=== PATIENT | female | born 1965 | race Caucasian/White ===

== ENCOUNTER → 2021-08-03 | Outpatient (CLI) | payer OTHER ==
[2021-08-03 09:12] LABS: African American GFR (CKD) >90 (>60 ml/min/1.73 sqM); Blood Urea Nitrogen 12 mg/dL (7-17); Non-African American GFR(CKD) >90 (>60 ml/min/1.73 sqM)
--- NOTE | 2021-08-03 11:45 | CT ---
CT urogram with and without contrast HISTORY: R 31.1, microhematuria Helical acquisition obtained pre- and postadministration of 100 cc of Isovue 370 through the abdomen, automated exposure control performed for dose reduction. No comparisons. Lung bases are clear, there is no pleural or pericardial effusion. ABDOMEN: Precontrast images show no hydronephrosis on the left, mild pelvic caliectasis present on th e right, no evident renal collecting system stone or ureteral calculus. There is a large cystic focus associated with the lower pole the right kidney in exophytic location measuring approximately 8.4 cm in transverse dimension. Crescentic calcification is present towards the upper aspect of the cyst sh ows a band appearance overall however there is a focal thickened portion on axial image 51 of the pre contrast images measuring approximately 5 mm. Suspect there may be an associated septal, the calcific ation is slightly central to the margin of the cyst. Minimal septal enhancement following contrast ad ministration is suspected but is not measurable. No additional renal mass. Cortical cyst is present a t the upper pole the left kidney measuring 13 mm. Ureters show normal course and caliber. Extrarenal pelves are present bilaterally. Within the upper pole renal collecting system on the left, coronal im age 88 and 89 series 10 there is a questionable filling defect, axial image #19 and 20 of series 9, f indings could possibly be related to streaming of contrast however difficult to exclude a filling def ect, similar type appearance is present to a lesser extent in the left kidney. Urinary bladder shows no definite mass. Small hypodense focus within the right lobe liver posteriorly and also along the inferior lip anterio rly likely represent cortical cysts. The pancreas, adrenal glands, spleen, pancreas are within normal limits. No retroperitoneal adenopathy. Atheromatous changes present within the aorta. Somewhat sligh t ectasia infrarenal abdominal aorta measures 3.1 cm. There is no evident bowel obstruction. There is a spinal curvature. IMPRESSION: Large cyst at the lower pole the right kidney as described. Difficult to exclude filling defect within the upper pole calyx of the left kidney as described.
== END | disposition home or self-care (01) ==
LOC: RADCTMAIN 08:15
PROVIDERS: ATTEND Urology
DX: R31.1 Benign essential microscopic hematuria (principal)
CPT/HCPCS: 82565; 84520; 74178; 36415; 74400; Q9967

== ENCOUNTER → 2021-08-25 | Outpatient (CLI) | payer OTHER ==
[2021-08-25 10:32] LABS: African American GFR (CKD) >90 (>60 ml/min/1.73 sqM); Anion Gap 7 mmol/L; Blood Urea Nitrogen 10 mg/dL (7-17); Calcium 9.7 mg/dL (8.4-10.2); Carbon Dioxide 29 mmol/L (22-30); Chloride 104 mmol/L (98-107); Glucose 112 mg/dL (74-99); Non-African American GFR(CKD) >90 (>60 ml/min/1.73 sqM); Potassium 4.2 mmol/L (3.5-5.1); Sodium 140 mmol/L (137-145)
[2021-08-25 10:35] LABS: Appearance,Urine Clear (Clear); Bacteria,Urine Rare /hpf; Bilirubin,Urine Negative (Negative); Blood,Urine Small (Negative); Color,Urine Yellow; Glucose,Urine (UA) Negative (Negative); Ketones,Urine Negative (Negative); Leukocyte Esterase,Urine Negative (Negative); Mucus,Urine Occasional /hpf; Nitrite,Urine Negative (Negative); Protein,Urine Negative (Negative); RBC,Urine 3 /hpf (0-5); Specific Gravity,Urine 1.011 (1.001-1.035); Squamous Epithelial Cell,Urine 5 /hpf (0-4); Urobilinogen,Urine <2.0 mg/dL (<2.0); WBC,Urine 2 /hpf (0-5)
[2021-08-25 10:56] LABS: Basophils # (A) 0.1 k/uL (0-0.2); Basophils % (A) 1 %; Eosinophils # (A) 0.3 k/uL (0-0.7); Eosinophils % (A) 3 %; HCT 44.6 % (34.0-46.0); HGB 14.3 gm/dL (11.4-16.0); Lymphocytes % (A) 29 %; MCH 30.7 pg (25.0-35.0); MCV 95.9 fL (80.0-100.0); Mean Platelet Volume 7.2; Monocytes # (A) 0.5 k/uL (0-1.0); Monocytes % (A) 5 %; Neutrophils # (A) 6.1 k/uL (1.3-7.7); Neutrophils % (A) 59 %; Platelet Count 335 k/uL (150-450); RBC 4.65 m/uL (3.80-5.40); RDW 12.2 % (11.5-15.5); WBC 10.3 k/uL (3.8-10.6)
== END | disposition home or self-care (01) ==
LOC: LABPAT 09:26
PROVIDERS: ATTEND Urology
DX: Z01.812 Encounter for preprocedural laboratory examination (principal); R31.1 Benign essential microscopic hematuria
CPT/HCPCS: 36415; 80048; 81001; 85025; 87086

== ENCOUNTER 2021-09-01 12:02 | Day surgery (SDC) | payer OTHER ==
[2021-08-25 11:37] VITALS: BMI 22.5
--- NOTE | 2021-09-01 11:12 | P.HPIHPCON ---
History of Present Illness H&P Date: 09/01/21 Chief Complaint: Microscopic hematuria This is a 56-year-old female with history of microscopic hematuria. She underwent a CT urogram showed a possible filling defect in the left upper pole. Discussed with her given this finding I recommend proceeding ureteroscopy to better evaluate the area. Discussed with her the risk of surgery which includes but not limited to bleeding, infection, injury to the ureter. Discussed also with her risk from anesthesia. She understood all the risk and agreed to proceed with a diagnostic left retrograde pyelogram, ureteroscopy, possible stent placement Consent for Procedure: I have explained the operation/procedure to the patient, including the risks, benefits, side effects, alternative therapies (including not receiving the proposed treatment or service), the likelihood of the patient achieving his/her goals, and potential recuperation problems for the procedure/sedation/analgesia, as well as any blood products, if indicated. I also explained to the patient the risks, benefits and side effects of the alternatives, as well as the risks related to not receiving the proposed procedure, care, treatment, or services. Past Medical History Additional Past Medical History / Comment(s): KIDNEY STONES History of Any Multi-Drug Resistant Organisms: None Reported Past Surgical History: Section Past Anesthesia/Blood Transfusion Reactions: No Reported Reaction Smoking Status: Current every day smoker - Past Family History Mother Family Medical History: No Reported History Medications and Allergies Allergies Allergy/AdvReac Type Severity Reaction Status Date / Time Unable to Assess Allergy Verified 08/25/21 11:23 Surgical - Exam - General no distress, no pain - Eyes normal ocular movement - ENT normal nares, normal mucosa - Respiratory normal expansion, normal respiratory effort - Abdomen Abdomen: soft, non tender - Psychiatric oriented to time, oriented to person, oriented to place Assessment and Plan Assessment: OR for cystoscopy, left retrograde pyelogram, ureteroscopy and possible stent placement
[~2021-09-01 12:02] MED LIST: DEXAMETHASONE SOD PHOSPHATE 4 MG/ML 1 ML VIAL IV ONE; HYDROmorphone 0.5 MG/0.5 ML SYRINGE IVP PRN; LACTATED RINGERS 1,000 ML IV SCH; ONDANSETRON 4 MG/2 ML VIAL IVP ONE
[2021-09-01] MEDS ORDERED: fentaNYL (PF) 50 MCG/ML 2 ML AMP ONE (13:31)
[2021-09-01] MEDS ORDERED: MIDAZOLAM 2 MG/2 ML VIAL ONE (13:31)
[2021-09-01] MEDS ORDERED: IOPAMIDOL-370 50ML BTL MISCELLANE ONE (13:31)
[2021-09-01] MEDS ORDERED: LIDOCAINE 1% INJ 10MG/ML (20 ML MDV) ONE (13:31)
[2021-09-01] MEDS ORDERED: PROPOFOL 10 MG/ML 20 ML VIAL IV ONE (13:31)
--- NOTE | 2021-09-01 14:09 | P.OP ---
Date of Procedure: 09/01/21 Preoperative Diagnosis: Microscopic hematuria, possible left ureteral tumor Postoperative Diagnosis: Same Procedure(s) Performed: Cystoscopy, left retrograde pyelogram, ureteroscopy Implants: None Anesthesia: GREGGA Surgeon: Emanuel Navarro Estimated Blood Loss (ml): 1 Pathology: none sent Condition: stable Disposition: PACU Indications for Procedure: This is a 56-year-old female with history of microscopic hematuria. She underwent a CT urogram showed a possible filling defect in the left upper pole. Discussed with her given this finding I recommend proceeding ureteroscopy to better evaluate the area. Discussed with her the risk of surgery which includes but not limited to bleeding, infection, injury to the ureter. Discussed also with her risk from anesthesia. She understood all the risk and agreed to proceed with a diagnostic left retrograde pyelogram, ureteroscopy, possible stent placement Operative Findings: Normal left ureteroscopy, cystoscopy Description of Procedure: Patient was brought to the operating room, general anesthesia was induced. She was prepped and draped in sterile fashion and placed in dorsal lithotomy position. Cystoscopy fitted with a 22-Azeri sheath was inserted per urethra, cystoscopy was performed showed no bladder tumors or abnormality within the bladder. Attention was then carried to the left ureteral orifice which was intubated with an open-ended catheter, retrograde pyelogram was performed showed no filling defect along the course of the ureter, along the upper pole there was a possible prominent papilla versus a a tumor on retrograde. At this time a sensor wire was advanced through the catheter the catheter was removed with the wire in place. Next flexible ureteroscope was passed over the wire and into the kidney. Renoscopy was performed which showed no abnormality within the kidney. The area of the filling defect was thoroughly evaluated using the ureteroscope which showed no tumors, and appeared to be more of a prominent papilla rather than the tumor. At this time pullback ureteroscopy was performed showed no injury to the ureter or any ureteral tumor. The bladder was emptied and the end of the case. Patient tolerated the procedure well was taken to recovery in stable condition
[2021-09-01 14:19] VITALS: TEMP 97
[2021-09-01] MEDS ORDERED: SODIUM CHLORIDE 0.9% 1,000 ML IV ONE ×2 (14:22)
[2021-09-01 14:41] VITALS: RESP 16
--- NOTE | 2021-09-01 14:51 | FL ---
Fluoroscopy HISTORY: Microhematuria 25 seconds fluoroscopy time supplied to the referring clinician. 2 intraoperative C-arm images docum ent the procedure. See dictated report from urology.
[2021-09-01 15:31] VITALS: BP 142/76; PULSE 75
== END 2021-09-01 15:27 | disposition home or self-care (01) ==
LOC: OR 12:02
PROVIDERS: ATTEND Urology
DX: R31.29 Other microscopic hematuria (principal); E78.5 Hyperlipidemia, unspecified; F17.210 Nicotine dependence, cigarettes, uncomplicated; Z87.442 Personal history of urinary calculi; Z79.899 Other long term (current) drug therapy; Z98.891 History of uterine scar from previous surgery
CPT/HCPCS: 74420; 52351; C1758 ×2; C1769; J2250; J0690; J2001; J3010; J2704; Q9967

== ENCOUNTER → 2021-09-22 | Outpatient (CLI) | payer OTHER ==
[2021-09-22 18:06] LABS: Basophils # (A) 0.03 X 10*3/uL (0.00-0.10); Basophils % (A) 0.5 %; Eosinophils # (A) 0.11 X 10*3/uL (0.04-0.35); Eosinophils % (A) 1.8 %; HGB 13.1 g/dL (12.0-15.0); Lymphocytes # (A) 2.49 X 10*3/uL (0.90-5.00); Lymphocytes % (A) 40.8 %; MCH 30.4 pg (27.0-32.0); MCHC 32.8 g/dL (32.0-37.0); MCV 92.8 fL (80.0-97.0); Mean Platelet Volume 9.4 fL (9.5-12.2); Monocytes # (A) 0.51 X 10*3/uL (0.20-1.00); Monocytes % (A) 8.3 %; Neutrophils # (A) 2.95 X 10*3/uL (1.80-7.70); Neutrophils % (A) 48.3 %; Platelet Count 310 X 10*3/uL (140-440); RBC 4.31 X 10*6/uL (4.10-5.20); RDW 12.5 % (11.5-14.5); WBC 6.11 X 10*3/uL (4.50-10.00)
[2021-09-22 18:12] LABS: Anion Gap 11.7 mmol/L (10.00-18.00); BUN/Creat Ratio 12.14 Ratio (12.00-20.00); Blood Urea Nitrogen 8.5 mg/dL (9.0-27.0); Calcium 9.1 mg/dL (8.7-10.3); Carbon Dioxide 25.3 mmol/L (20.0-27.5); Non-African American GFR(CKD) 97.5 (60.0-200.0); Potassium 3.5 mmol/L (3.5-5.5)
== END | disposition home or self-care (01) ==
LOC: LABPAT 14:51
PROVIDERS: ATTEND Urology
DX: Z01.812 Encounter for preprocedural laboratory examination (principal)
CPT/HCPCS: 36415; 80048; 85025

== ENCOUNTER 2021-09-28 05:57 | Observation (INO) | payer OTHER ==
[2021-09-25 09:23] VITALS: BMI 22.0
--- NOTE | 2021-09-27 12:59 | P.HPIHPCON ---
History of Present Illness H&P Date: 09/27/21 this is a 56-year-old female with history of an 8.4 cm right lower pole renal cyst. She is symptomatic from her cyst with symptomatic flank pain. Discussed with her the option of drainage versus a robotic cyst decortication. 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 Discussed the risk of surgery which includes but not limited to bleeding, infection, injury to the kidney requiring nephrectomy, risk of injury to nearby organs, discussed risk from anesthesia with her. discussed with her also the potential of persistent pain even with cystic decortication She understood all the risk and agreed to proceed with right-sided robotic cyst decortication Consent for Procedure: I have explained the operation/procedure to the patient, including the risks, benefits, side effects, alternative therapies (including not receiving the proposed treatment or service), the likelihood of the patient achieving his/her goals, and potential recuperation problems for the procedure/sedation/analgesia, as well as any blood products, if indicated. I also explained to the patient the risks, benefits and side effects of the alternatives, as well as the risks related to not receiving the proposed procedure, care, treatment, or services. Past Medical History Past Medical History: Hyperlipidemia Additional Past Medical History / Comment(s): cyst on rt kidney, hx migraines, hx anemia History of Any Multi-Drug Resistant Organisms: None Reported Past Surgical History: Section Additional Past Surgical History / Comment(s): cystoscopy 09/01/21 Past Anesthesia/Blood Transfusion Reactions: Motion Sickness, Postoperative Nausea & Vomiting (PONV) Smoking Status: Current every day smoker - Past Family History Mother Family Medical History: Cancer Medications and Allergies Home Medications Medication Instructions Recorded Confirmed Type Atorvastatin [Lipitor] 10 mg PO DAILY 09/01/21 09/25/21 History Ketorolac [Toradol] 10 mg PO Q6HR PRN #15 tab 09/01/21 09/25/21 Rx Acetaminophen [Tylenol Extra 500 mg PO DIRECTED PRN 09/25/21 09/25/21 History Strength] Vitamin B Complex 1 each PO DAILY 09/25/21 09/25/21 History Allergies Allergy/AdvReac Type Severity Reaction Status Date / Time No Known Allergies Allergy Verified 09/25/21 09:14 Surgical - Exam - General well developed, well nourished, no distress - Eyes normal ocular movement - ENT normal nares, normal mucosa - Respiratory normal expansion, normal respiratory effort - Abdomen Abdomen: soft, non tender - Psychiatric oriented to time, oriented to person, oriented to place Assessment and Plan Assessment: OR for right-sided robotic cyst decortication
[2021-09-28] MEDS ORDERED: LIDOCAINE 1% (10MG/ML) FOR IV START INTRADERMA ONE (06:59)
[2021-09-28] MEDS: LACTATED RINGERS 1,000 ML IV SCH ×3 (07:07→07:43)
[2021-09-28] MEDS ORDERED: MIDAZOLAM 2 MG/2 ML VIAL IVP ONE (07:13)
[2021-09-28] MEDS: DEXAMETHASONE SOD PHOSPHATE 4 MG/ML 1 ML VIAL IV ONE ×2 (07:39→11:47)
[2021-09-28] MEDS: ONDANSETRON 4 MG/2 ML VIAL IVP ONE ×2 (07:39→11:47)
[2021-09-28] MEDS ORDERED: SCOPOLAMINE 1.5MG/72HR PATCH TRANSDERM ONE (07:39)
[2021-09-28] MEDS ORDERED: NEOSTIGMINE 1 MG/ML 10 ML VIAL ONE (07:41)
[2021-09-28] MEDS ORDERED: PHENYLEPHRINE-0.9% NACL SYG 1,000 MCG/10 ML SYRINGE ONE (07:41)
[2021-09-28] MEDS ORDERED: ROCURONIUM 10 MG/ML (5 ML VIAL) IV ONE (07:41)
[2021-09-28] MEDS ORDERED: PROPOFOL 10 MG/ML 20 ML VIAL IV ONE (07:41)
[2021-09-28] MEDS ORDERED: SODIUM CHLORIDE 0.9% (PF) 10 ML VIAL ONE (07:41)
[2021-09-28] MEDS ORDERED: LIDOCAINE 1% INJ 10MG/ML (20 ML MDV) ONE (07:41)
[2021-09-28] MEDS ORDERED: MIDAZOLAM 2 MG/2 ML VIAL ONE (07:41)
[2021-09-28] MEDS ORDERED: diphenhydrAMINE 50 MG/ML 1 ML VIAL ONE (07:41)
[2021-09-28] MEDS ORDERED: GLYCOPYRROLATE 0.2 MG/ML 2 ML VIAL ONE (07:41)
[2021-09-28] MEDS ORDERED: fentaNYL (PF) 50 MCG/ML 2 ML AMP ONE (07:41)
[2021-09-28] MEDS ORDERED: SUCCINYLCHOLINE CHLORIDE 100 MG/5 ML SYR IV ONE (07:41)
[2021-09-28] MEDS ORDERED: ROPIVACAINE 5 MG/ML 30 ML VIAL ONE (07:41)
[2021-09-28] MEDS ORDERED: SODIUM CHLORIDE 0.9% 50 ML with ceFAZolin 2,000 MG IV ONE ×2 (08:00)
[2021-09-28] MEDS ORDERED: BUPIVACAINE (PF) 0.5% 30 ML VIAL SQ ONE ×2 (08:17→08:48)
--- NOTE | 2021-09-28 09:26 | P.OP ---
Date of Procedure: 09/28/21 Preoperative Diagnosis: right renal cyst Postoperative Diagnosis: same Procedure(s) Performed: robotic Cyst decortication (right) Implants: none Anesthesia: GREGGA Surgeon: Emanuel Navarro Chemical Production Technician #1: Radha Kiser Estimated Blood Loss (ml): 10 Pathology: other (right renal cyst wall) Condition: stable Disposition: PACU Indications for Procedure: this is a 56-year-old female with history of an 8.4 cm right lower pole renal cyst. She is symptomatic from her cyst with symptomatic flank pain. Discussed with her the option of drainage versus a robotic cyst decortication. 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 Discussed the risk of surgery which includes but not limited to bleeding, infection, injury to the kidney requiring nephrectomy, risk of injury to nearby organs, discussed risk from anesthesia with her. discussed with her also the potential of persistent pain even with cystic decortication She understood all the risk and agreed to proceed with right-sided robotic cyst decortication Operative Findings: large right renal cyst Description of Procedure: .The patient was taken to the operating room . General anesthesia was induced. She was prepped and draped in sterile fashion, and was placed in modified flank position . All pressure points were padded. The abdominal insufflation was achieved with the Veress needle. A 8 mm camera port was placed. Robotic trocars and 5mm property assistant ports were placed under direct vision. . The robot was docked into place. The colon was mobilized medially by incising along the white line of Toldt. next gerota fascia was incised, dissected off of the cyst wall. Next the incision was made in the cyst, and the cyst was drained. The cyst wall was completely excised, the edges of the cyst was cauterized, no abnormality was noted within the cyst wall. Cyst was removed and sent to pathology. At the end of no other abnormality was seen within the kidney. The robot was undocked, all skin incisions were closed using 4-0 Monocryl and Dermabond. The patient was awakened from anesthesia and taken to recovery in stable condition Please refer to the final pathology report for final diagnosis
[2021-09-28] MEDS: HYDROmorphone 0.5 MG/0.5 ML SYRINGE IVP PRN ×2 (09:55→10:00)
[2021-09-28] MEDS: D5-0.45% NACL WITH KCL 20MEQ/L 1,000 ML IV SCH ×2 (11:47→12:41)
[2021-09-28] MEDS: HEPARIN SODIUM,PORCINE/PF 5,000 UNIT/0.5 ML SYRINGE SQ SCH ×2 (11:47→15:54)
[2021-09-28] MEDS: ATORVASTATIN 10 MG TAB PO SCH (11:48)
[2021-09-28] MEDS: KETOROLAC 30 MG/ML 1 ML VIAL IVP SCH ×2 (12:42→17:19)
--- NOTE | 2021-09-28 20:56 | P.ANPRN ---
Procedure Note - Anesthesia - Nerve Block Performed Bilateral Erector Spinae Single Time Out Performed: Yes Date of Procedure: 09/28/20 Procedure Start Time: 07:12 Procedure Stop Time: 07:17 Location of Patient: PreOp Indication: Acute Post-Operative Pain, Requested by Surgeon Sedation Type: Sedate with meaningful contact maintained Preparation: Sterile Prep Position: Prone Needle Types: Pajunk Needle Gauge: 21 Ultrasound used to visualize needle placement: Yes Ultrasound used to observe medication spread: Yes Blood Aspirated: No Pain Paresthesia on Injection Noted: No Resistance on Injection: Normal Image Stored and Saved: Yes Events: Uneventful and Well Tolerated (ropi .5% 15cc plus ns 10cc given at L1 bilaterally)
[2021-09-29] MEDS: HEPARIN SODIUM,PORCINE/PF 5,000 UNIT/0.5 ML SYRINGE SQ SCH ×2 (00:30→09:18)
[2021-09-29] MEDS: KETOROLAC 30 MG/ML 1 ML VIAL IVP SCH ×3 (00:31→11:43)
[2021-09-29] MEDS: D5-0.45% NACL WITH KCL 20MEQ/L 1,000 ML IV SCH ×2 (00:35→11:44)
[2021-09-29] MEDS: HYDROcodone/APAP 5-325MG 1 EACH TAB PO PRN ×2 (05:50→11:51)
[2021-09-29] MEDS: ATORVASTATIN 10 MG TAB PO SCH (09:18)
--- NOTE | 2021-09-29 12:08 | P.DS ---
Providers Date of admission: 09/29/21 10:02 Attending physician: Emanuel Navarro MD Primary care physician: [facility] Course: 56-year-old female history of right-sided symptomatic renal cyst. Underwent a robotic cyst decortication, please see op note dated September 28 for surgery detail. Patient was admitted to the hospital postoperatively. Valentine was removed on postop day #1. She was discharged home on postoperative day #1, at time of discharge was tolerating a diet, ambulating, pain was well-controlled Plan - Discharge Summary Discharge Rx Participant: No New Discharge Prescriptions: New Ketorolac [Toradol] 10 mg PO Q6HR #10 tab HYDROcodone/APAP 5-325MG [Luck 5-325] 1 tab PO Q6HR PRN 3 Days #12 tab PRN Reason: Pain No Action Atorvastatin [Lipitor] 10 mg PO DAILY Ketorolac [Toradol] 10 mg PO Q6HR PRN #15 tab PRN Reason: Pain Acetaminophen [Tylenol Extra Strength] 500 mg PO DIRECTED PRN PRN Reason: Pain Vitamin B Complex 1 each PO DAILY Discharge Medication List Atorvastatin [Lipitor] 10 mg PO DAILY 09/01/21 [History] Ketorolac [Toradol] 10 mg PO Q6HR PRN #15 tab 09/01/21 [Rx] Acetaminophen [Tylenol Extra Strength] 500 mg PO DIRECTED PRN 09/25/21 [History] Vitamin B Complex 1 each PO DAILY 09/25/21 [History] HYDROcodone/APAP 5-325MG [Luck 5-325] 1 tab PO Q6HR PRN 3 Days #12 tab 09/29/21 [Rx] Ketorolac [Toradol] 10 mg PO Q6HR #10 tab 09/29/21 [Rx] Activity/Diet/Wound Care/Special Instructions: No heavy lifting or straining for 4 weeks You may shower but no baths Avoid large meals and greasy food for 1-2 weeks
[2021-09-29 12:16] VITALS: BP 125/69; PULSE 68; RESP 18; TEMP 98.7
== END 2021-09-29 13:00 | disposition home or self-care (01) ==
LOC: OR 05:57 → 5NMEDONC 08:58 → OR 09-29 10:02 → 5NMEDONC 09-29 10:02
PROVIDERS: ADMIT Urology; ATTEND Urology
DX: N28.1 Cyst of kidney, acquired (principal); E78.5 Hyperlipidemia, unspecified; G43.909 Migraine, unspecified, not intractable, without status migrainosus; D64.9 Anemia, unspecified; F17.210 Nicotine dependence, cigarettes, uncomplicated; Z20.822 Contact with and (suspected) exposure to COVID-19; Z79.899 Other long term (current) drug therapy; Z98.891 History of uterine scar from previous surgery; Z80.9 Family history of malignant neoplasm, unspecified
CPT/HCPCS: 50541; S2900; 64999; 84132; 86850; 86900; 86901; 87635; 88305

== ENCOUNTER → 2021-12-25 | Outpatient (CLI) | payer OTHER ==
--- NOTE | 2021-12-25 10:16 | US ---
EXAMINATION TYPE: US kidneys/renal and bladder DATE OF EXAM: 12/25/2021 COMPARISON: NONE CLINICAL HISTORY: N28.1 Renal Cyst. Renal cyst right removed in August. EXAM MEASUREMENTS: Right Kidney: 11.9 x 4.0 x 4.0 cm Left Kidney: 9.4 x 4. x 3.8 cm Right Kidney: wnl Left Kidney: wnl Bladder: wnl Bilateral Jets seen: Yes There is no evidence for hydronephrosis at this point in time. No nephrolithiasis is seen. No fernando s are identified. The urinary bladder is anechoic. Bilateral ureteral jets are seen. IMPRESSION: No distinct abnormality appreciated at this time.
== END | disposition home or self-care (01) ==
LOC: RADUSWWP 09:33
PROVIDERS: ATTEND Urology
DX: N28.1 Cyst of kidney, acquired (principal)
CPT/HCPCS: 76770